=== PATIENT | female | born 1970 | race Caucasian/White ===

== ENCOUNTER 2019-10-30 09:43 | Emergency (ER) | payer MEDICARE ==
[2019-10-30] MEDS ORDERED: NORMAL SALINE 1000 ML 1,000 ML IV PRN (10:17)
[2019-10-30] MEDS ORDERED: ONDANSETRON HCL INJ/PF 4 MG/2 ML SDV IV ONE (10:17)
--- NOTE | 2019-10-30 10:17 | ER Document Report ---
ED Medical Screen (RME) - General Chief Complaint: Abdominal Pain Stated Complaint: ABDOMINAL PAIN Time Seen by Provider: 10/30/19 10:13 Mode of Arrival: Ambulatory Notes: This is a 49-year-old female presented to the emergency room today with some abdominal discomfort and burning since Tuesday this not burning when she urinates just burning in the belly she has had nausea no emesis she did have an episode of diarrhea today she is really not been taking any p.o. food or fluid she has her mother with her as she is a poor historian based on some disabilities. - Related Data Allergies/Adverse Reactions: No Known Allergies Allergy (Verified 10/30/19 09:50) Past Medical History - Social History Frequency of alcohol use: None Drug Abuse: None Physical Exam - Vital signs Vitals: Temp Pulse Resp BP Pulse Ox 98.7 F 138 H 18 151/89 H 95 10/30/19 09:49 10/30/19 09:49 10/30/19 09:49 10/30/19 09:49 10/30/19 09:49 Course - Vital Signs Vital signs: Temp Pulse Resp BP Pulse Ox 98.7 F 138 H 18 151/89 H 95 10/30/19 09:49 10/30/19 09:49 10/30/19 09:49 10/30/19 09:49 10/30/19 09:49
[2019-10-30 10:40] LABS: ABSOLUTE LYMPHOCYTES (AUTO) 0.6 10^3/uL (0.5-4.7); ABSOLUTE MONOCYTES (AUTO) 0.7 10^3/uL (0.1-1.4); ABSOLUTE NEUT (AUTO) 9.9 10^3/uL (1.7-8.2); BASOPHILS % (AUTO) 0.1 % (0-2); HEMATOCRIT 44.8 % (36.0-47.0); HEMOGLOBIN 14.9 g/dL (12.0-15.5); LYMPHOCYTES % (AUTO) 5.7 % (13-45); MEAN CORPUSCULAR HEMOGLOBIN 30.8 pg (27.0-33.4); MEAN CORPUSCULAR HGB CONC 33.3 g/dL (32.0-36.0); MEAN CORPUSCULAR VOLUME 92 fl (80-97); MONOCYTES % (AUTO) 6.3 % (3-13); PLATELET COUNT 276 10^3/uL (150-450); RED BLOOD COUNT 4.85 10^6/uL (3.72-5.28); SEGMENTED NEUTROPHILS % (AUTO) 87.9 % (42-78); TOTAL CELLS COUNTED % (AUTO) 100 %; WHITE BLOOD COUNT 11.3 10^3/uL (4.0-10.5)
--- NOTE | 2019-10-30 10:52 | RADIOLOGY REPORT (SQ) ---
EXAM DESCRIPTION: ACUTE ABDOMEN SERIES IMAGES COMPLETED DATE/TIME: 10/30/2019 10:38 am REASON FOR STUDY: pain COMPARISON: None. NUMBER OF VIEWS: Three views. TECHNIQUE: Frontal chest, supine abdomen and upright/decubitus abdomen radiographic images acquired. LIMITATIONS: None. FINDINGS: CHEST: The cardiomediastinal silhouette and pulmonary vasculature are within normal limits . There is no consolidation, pleural effusion or pneumothorax. FREE AIR: None. BOWEL GAS PATTERN: No dilated loops of bowel or differential air-fluid levels. CALCIFICATIONS: Calculi that project over the lower pole of the left kidney. HARDWARE: None in the abdomen. SOFT TISSUES: No abnormality. BONES: No acute fracture. OTHER: No other finding. IMPRESSION: 1. No acute cardiopulmonary process. 2. Left-sided renal calculi. 3. Nonobstructive bowel gas pattern. TECHNICAL DOCUMENTATION: JOB ID: [id number] 2010 [employer]- All Rights Reserved Reading location - IP/workstation name: [email or web address]
[2019-10-30 11:03] LABS: ALBUMIN 4.3 g/dL (3.5-5.0); ALKALINE PHOSPHATASE 110 U/L (38-126); ANION GAP 11 (5-19); ASPARTATE AMINO TRANSFERASE 11 U/L (14-36); BLOOD UREA NITROGEN 10 mg/dL (7-20); CALCIUM 9.6 mg/dL (8.4-10.2); CARBON DIOXIDE 28 mmol/L (22-30); CHLORIDE 98 mmol/L (98-107); GLUCOSE 135 mg/dL (75-110); POTASSIUM 3.4 mmol/L (3.6-5.0); TOTAL PROTEIN 8.3 g/dL (6.3-8.2)
[2019-10-30] MEDS ORDERED: MAG HYDROX/AL HYDROX/SIMETH SUSP 30 ML UDCUP PO ONE (11:28)
[2019-10-30] MEDS ORDERED: LIDOCAINE 2% VISCOUS SOLN 15 ML UDCUP PO ONE (11:28)
[2019-10-30 12:29] LABS: APPEARANCE,URINE CLOUDY; BILIRUBIN,URINE NEGATIVE (NEGATIVE); GLUCOSE, URINE NEGATIVE (NEGATIVE); KETONES,URINE TRACE mg/dL (NEGATIVE); LEUKOCYTE ESTERASE,URINE LARGE (NEGATIVE); NITRITE,URINE NEGATIVE (NEGATIVE); PROTEIN,URINE 100 mg/dL (NEGATIVE); URINE SPECIFIC GRAVITY 1.023; UROBILINOGEN,URINE NEGATIVE mg/dL (<2.0)
[2019-10-30 12:30] LABS: COLOR,URINE YELLOW
--- NOTE | 2019-10-30 13:09 | ER Document Report ---
Entered by ADRIANA KINGSTON SCRIBE 10/30/19 1114 Acting as scribe for:CHAVA HOOKS MD ED GI/ - General Chief Complaint: Abdominal Pain Stated Complaint: ABDOMINAL PAIN Time Seen by Provider: 10/30/19 10:13 Mode of Arrival: Ambulatory Information source: Patient, Parent Notes: This 49 year old female patient that presents to the emergency department today with complaints of several days of abdominal burning. Patient is developmentally delayed and most history is being given by mom at bedside. Mom states the pain comes and goes, and it becomes worse with food or water. Mom reports subjective fevers as well. Mom denies any vomiting. - Related Data Allergies/Adverse Reactions: No Known Allergies Allergy (Verified 10/30/19 10:43) Past Medical History - General Information source: Patient, Parent - Social History Smoking Status: Never Smoker Cigarette use (# per day): No Frequency of alcohol use: None Drug Abuse: None Lives with: Family Family History: Reviewed & Not Pertinent - Medical History Medical History: Negative Past Surgical History: Reports: Hx Breast Surgery - reduction, Hx Cardiac Surgery - Ablation for SVT Review of Systems - Review of Systems Constitutional: See HPI, Fever - subjective EENT: No symptoms reported Cardiovascular: No symptoms reported Respiratory: No symptoms reported Gastrointestinal: See HPI, Abdominal pain, Nausea. denies: Vomiting Genitourinary: No symptoms reported Female Genitourinary: No symptoms reported Musculoskeletal: No symptoms reported Skin: No symptoms reported Hematologic/Lymphatic: No symptoms reported Neurological/Psychological: No symptoms reported -: Yes All other systems reviewed and negative Physical Exam - Vital signs Vitals: Temp Pulse Resp BP Pulse Ox 98.7 F 138 H 18 151/89 H 95 10/30/19 09:49 10/30/19 09:49 10/30/19 09:49 10/30/19 09:49 10/30/19 09:49 - Notes Notes: Physical Exam: General: Alert, appears well. 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 HEENT: Normocephalic. Atraumatic. PERRL. Extraocular movements intact. Orop harynx clear. Neck: Supple. Non-tender. Respiratory: No respiratory distress. Clear and equal breath sounds bilaterally. Cardiovascular: Regular rate and rhythm. Abdominal: When sitting down in a chair there is tenderness with palpation in all four quadrants, without epigastric tenderness. The lower abdomen is exquistiely tender when sitting. When the patient stands up and jumps she has no pain and has absolutely no pain with abdomen palpation when standing. No distension. Normal Bowel Sounds. Back: No gross abnormalities. Extremities: Moves all four extremities. Upper extremities: Normal inspection. Normal ROM. Lower extremities: Normal inspection. No edema. Normal ROM. Neurological: at baseline Psychological: at baseline Skin: Warm. Dry. Normal color. Course - Re-evaluation Re-evalutation: 10/30/19 13:22 Patient was given a GI cocktail, and seemed to get complete relief of her discomfort. Repeat examination shows no tenderness on palpation and the patient reports that her pain is gone. Her mother reports that she had not been eating much, and on Tuesday ate a large meal that included sausage. She is known to have a history of some reflux and heartburn problems. - Vital Signs Vital signs: Temp Pulse Resp BP Pulse Ox 98.7 F 138 H 18 151/89 H 95 10/30/19 09:49 10/30/19 09:49 10/30/19 09:49 10/30/19 09:49 10/30/19 09:49 - Laboratory Result Diagrams: 10/30/19 10:10 10/30/19 10:10 Laboratory results interpreted by me: 10/30/19 10/30/19 10/30/19 10:10 10:10 12:09 WBC 11.3 H Lymph % (Auto) 5.7 L Absolute Neuts (auto) 9.9 H Seg Neutrophils % 87.9 H Sodium 136.5 L Potassium 3.4 L Glucose 135 H AST 11 L Total Protein 8.3 H Urine Protein 100 H Urine Ketones TRACE H Urine Blood SMALL H Ur Leukocyte Esterase LARGE H - Diagnostic Test Radiology reviewed: Image reviewed, Reports reviewed - KUB shows left renal calcifications, no acute intestinal process noted. Discharge - Discharge Clinical Impression: GERD (gastroesophageal reflux disease) Qualifiers: Esophagitis presence: esophagitis presence not specified Qualified Code(s): K21.9 - Gastro-esophageal reflux disease without esophagitis Abdominal pain Qualifiers: Abdominal location: generalized Qualified Code(s): R10.84 - Generalized abdominal pain Condition: Stable Disposition: HOME, SELF-CARE Additional Instructions: Abdominal Pain There are many causes of abdominal pain. Pain can mean a serious problem requiring surgery (such as appendicitis). It can also be an innocent problem that goes away on its own (such as a viral infection). Often, time must pass to determine the cause of pain. The physician does not feel that hospitalization is necessary, at present. Things may change within the next 24 hours. Call the doctor or come back for re- examination if any problems occur, such as: (1) Pain that becomes more severe, steady, or becomes concentrated in one specific area. Also, pain that is more severe with movement or coughing. (2) Vomiting that persists or becomes more frequent. (3) Blood in the vomitus, urine, or bowel movements. Blood in the stool may have a tarry or black appearance. (4) Shaking chills or fever greater than 100 degrees F. (5) The abdomen becomes more distended or swollen. (6) Bowel movements cease. (7) Failure to improve as expected. Reflux Disease (GERD) Gastro-Esophageal Reflux Disease (GERD) is caused by stomach acid refluxing back up into the esophagus. The valve at the end of the esophagus may be weak. This is common in persons with a hiatal hernia. GERD symptoms can include indigestion, chest pain, heartburn, or food "sticking." Certain foods, alcohol, and aspirin can make GERD worse. Treatment depends on the severity. Usually, antacids or acid-suppressing medicines are used. When the esophagus is acutely inflamed, the physician will often prescribe membrane-protective drugs such as Carafate. Some patients benefit from medication such as Reglan that tightens the valve at the top of the stomach. Avoid those foods that bring on your symptoms. For many people, these foods are coffee, chocolate, onions, garlic, and carbonated drinks. Don't use alcohol, aspirin, caffeine, or tobacco. Don't eat late at night -- within 4 hours of bedtime. Don't over-eat. If necessary, elevate the head of your bed about 4 inches so that stomach acid will not roll up into your esophagus. Call the doctor if you develop severe chest pain, inability to swallow fluids, fever, or worsening symptoms. Your abdominal pain symptoms today seem to be most likely due to gastroesophageal reflux. Your symptoms did improve after being given a GI cocktail consisting of lidocaine for numbing the esophagus and stomach, and Maalox for neutralizing acid. Start taking omeprazole 20 mg [id number] dose once daily. Take antacids between meals and at bedtime. Eat a bland diet. Follow-up with your primary care provider if you continue having similar type symptoms. Return to the emergency room if the symptoms change or get worse. RETURN TO THE EMERGENCY ROOM IF ANY NEW OR WORSENING SYMPTOMS. I personally performed the services described in the documentation, reviewed and edited the documentation which was dictated to the scribe in my presence, and it accurately records my words and actions.
[2019-10-30 13:42] VITALS: BP 142/83
== END 2019-10-30 13:38 | disposition home or self-care (01) ==
LOC: ER 09:43
DX: K21.9 Gastro-esophageal reflux disease without esophagitis (principal); N20.0 Calculus of kidney; R10.84 Generalized abdominal pain; R11.0 Nausea
CPT/HCPCS: 99284; 96361; 96374; 36415; 83690; 85025; 80053; 81001; 74022; J3490; A9270; J2405; J7030